=== PATIENT | male | born 1965 | race Caucasian/White ===

== ENCOUNTER 2021-01-04 05:56 | Day surgery (SDC) | payer BC ==
[~2021-01-04] VITALS: Ht 177.8 cm; Wt 111.4 kg
[~2021-01-04 05:56] MED LIST: NEXIUM 40MG40 MG PO; NO HOME MEDICATIONS
[2021-01-04 06:16] VITALS: BP 151/99; PULSE 88; TEMP 97.6
[2021-01-04 08:05] VITALS: BP 122/83; PULSE 80
--- NOTE | 2021-01-04 08:22 | NUR ---
0735 Pt returns from endo procedure via cart and RN assist to [facility] [place] [facility]. Pt ambulates from cart to recliner with RN assist. Monitors on and alarms set. Call light within reach. Report received from LIZANDRO Sanford. Pt alert and oriented. Pt requests muffin and coffee. Pt denies any pain or nausea. 0745 Pt taking food and drink well. No complications noted. 0810 Discharge instructions given to pt and . All questions answered to their satisfaction. Handed to pt are a thank you card and discharge information. 0822 Pt transferred out of the hospital via wheelchair and this RN assist, to private vehicle driven by pt's .
== END 2021-01-04 08:22 | disposition home or self-care (01) ==
LOC: SDCO 05:56
DX: Z12.11 Encounter for screening for malignant neoplasm of colon (principal); K21.9 Gastro-esophageal reflux disease without esophagitis; E78.5 Hyperlipidemia, unspecified; Z20.822 Contact with and (suspected) exposure to COVID-19; Z83.71 Family history of colonic polyps
CPT/HCPCS: J2704; J7120